=== PATIENT | male | born 1995 | race Caucasian/White ===

== ENCOUNTER 2021-06-17 18:15 | Emergency (ER) | payer BC ==
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
[2021-06-17] MEDS ORDERED: Octyl 2-Cyanoacrylate 1 Tube TOP ONE (20:22)
[2021-06-17] MEDS ORDERED: Diphtheria,Pertussis(Acell),Tetanus Vaccine 0.5 ML Syringe IM ONE (20:37)
== END 2021-06-17 20:58 | disposition home or self-care (01) ==
LOC: MW.ED 18:15
DX: S62.314A Displaced fracture of base of fourth metacarpal bone, right hand, initial encounter for closed fracture (principal); S01.81XA Laceration without foreign body of other part of head, initial encounter; V29.9XXA Motorcycle rider (driver) (passenger) injured in unspecified traffic accident, initial encounter; Y92.410 Unspecified street and highway as the place of occurrence of the external cause
CPT/HCPCS: 12011; 29125; 73130; 99283; A9270

== ENCOUNTER 2023-08-19 20:50 | Emergency (ER) | payer BC ==
[2023-08-19] MEDS ORDERED: Ketorolac 30 MG/ML SDV IM ONE (21:12)
== END 2023-08-19 21:25 | disposition home or self-care (01) ==
LOC: MW.ED 20:50
DX: M25.511 Pain in right shoulder (principal)
CPT/HCPCS: 96372; 99283; J1885